=== PATIENT | male | born 1955 | race Caucasian/White ===

== ENCOUNTER 2022-03-02 11:43 | Outpatient (REF) | payer MEDICARE, SELFPAY ==
[2022-03-02 13:18] LABS: ALT 22 U/L (16-63); AST 15 U/L (15-37); Albumin 3.7 g/dL (3.4-5.0); Alkaline Phosphatase 66 U/L (46-116); Anion Gap 8.9 mmol/L (3-11); BUN 15 mg/dL (7-18); Bilirubin, Total 0.5 mg/dL (0.2-1.0); CO2 28.1 mmol/L (21.0-32.0); CREATININE 1.1 mg/dL (0.70-1.30); Calcium 8.7 mg/dL (8.5-10.1); Chloride 105 mmol/L (98-107); Glucose 92 mg/dL (74-106); Potassium 4.1 mmol/L (3.5-5.1); Sodium 142 mmol/L (136-145); Total Protein 7.3 g/dL (6.4-8.2)
== END 2022-03-02 11:44 | disposition home or self-care (01) ==
LOC: LBN 11:43
PROVIDERS: Visit Provider Physician Assistant Medical
DX: U07.1 COVID-19 (principal)
CPT/HCPCS: 80053

== ENCOUNTER 2022-09-28 20:35 | Emergency (ER) | payer MEDICARE, SELFPAY ==
[2022-09-28 20:40] VITALS: BP 158/82; PULSE 83; RESP 20; TEMP 36.2; O2SAT 98
[2022-09-28] MEDS: Ondansetron 4 MG/2 ML VIAL IVP ×2 (21:04→23:27)
[2022-09-28] MEDS: Normal Saline 1,000 ML 1000 ML IV (21:04)
[2022-09-28 21:09] LABS: Abs Immature Grans 0.01 10^3/uL (0.0-0.06); Absolute Basophil Count 0.02 10^3/uL (0.0-0.2); Absolute Eosinophil Count 0.09 10^3/uL (0.0-0.7); Absolute Lymphocyte Count 1.14 10^3/uL (1.2-3.4); Absolute Monocyte Count 0.47 10^3/uL (0.1-0.8); Absolute Neutrophil Count 4.33 10^3/uL (1.2-6.7); Basophils % 0.3; Eosinophils % 1.5; HGB 15.7 g/dL (13.5-17.5); Immature Grans % 0.2; Lymphocytes % 18.8; MCH 31.7 pg (27.0-33.0); MCHC 33.4 % (32.0-36.0); MCV 95 fL (80-95); MPV 10.4 fL (8.0-11.0); Monocytes % 7.8; Neutrophils % 71.4; Platelet Count 247 10^3/uL (130-400); RBC 4.96 10^6/uL (4.36-5.78); RDW 11.9 % (11.8-14.1); WBC 6.06 10^3/uL (4.4-10.8)
[2022-09-28 21:25] LABS: ALT 28 U/L (16-63); AST 21 U/L (15-37); Albumin 4.1 g/dL (3.4-5.0); Alkaline Phosphatase 68 U/L (46-116); Anion Gap 10.3 mmol/L (3-11); BUN 20 mg/dL (7-18); Bilirubin, Total 0.7 mg/dL (0.2-1.0); CO2 27.7 mmol/L (21.0-32.0); Calcium 9.3 mg/dL (8.5-10.1); Chloride 99 mmol/L (98-107); Estimated GFR 83.52 (mL/min/1.73m2); Glucose 117 mg/dL (74-106); Lipase 75 U/L (73-393); Potassium 3.7 mmol/L (3.5-5.1); Sodium 137 mmol/L (136-145); Total Protein 8.5 g/dL (6.4-8.2)
--- NOTE | 2022-09-28 21:30 | DI.CT_ITS ---
Exam(s) CT ABDOMEN PELVIS W EXAM: CT ABDOMEN PELVIS W CLINICAL HISTORY: Abd pain Nausea Vomiting TECHNIQUE: Imaging Protocol: Axial computed tomography images with coronal and sagittal reformatted images were created and reviewed CONTRAST MATERIAL: Intravenous: Omnipaque 350 Contrast volume:100 mL Oral: No COMPARISON: No exams were available for comparison FINDINGS: ABDOMEN: Lung Bases: Normal where visualized. Liver: Normal density. No measurable mass. Portal, Superior Mesenteric, and Splenic Veins: Unremarkable. Gallbladder and Biliary Tract: No radiodense calculus or dilation. Pancreas: Normal density, no abnormal calcifications or inflammatory process. Spleen: Normal. Adrenals: No masses seen. Kidneys: Normal size, contour and axis. No radiodense stones or obstructive uropathy. Tiny simple cys ts are seen in the kidneys. No suspicious solid masses are present. Note is made of a retroaortic l eft renal vein. Abdominal Aorta: Abdominal portion non-dilated. Atherosclerosis is present. Bowel: There are dilated loops of small bowel with air-fluid level seen in the mid and lower abdomen. There do appear to be transition points in the right mid abdomen in the left lower abdomen. Consid er closed loop small bowel obstruction. Appendix is unremarkable. Peritoneal Cavity: There is a trace amount of free fluid in the pelvis. No free air. Lymph Nodes: Within normal limits. Bones: Within normal limits for the patient's age. Soft Tissues: There are bilateral fat containing inguinal hernias. PELVIS: Bladder: Symmetric distention, no gross wall thickening. Reproductive Organs: Unremarkable as visualized. Lymph Nodes: Within normal limits. Bones: Within normal limits for the patient's age. IMPRESSION: 1. Dilated small bowel loops with air-fluid levels as described above. Consider close loop small bow el obstruction. 2. Trace amount of free fluid in the pelvis. No pneumoperitoneum. RADIATION DOSE DELIVERED: 1,148.28mGy.cm Total DLP DATA REPOSITORY: All CT scans at this facility are submitted to the National Radiology Data Registry (NRDR) Dose Index Registry (DIR) with the [employer] ([employer]). RADIATION OPTIMIZATION: All CT scans at this facility use at least one of these dose optimization te chniques: automated exposure control; mA and/or kV adjustment per patient size (includes targeted exa ms where dose is matched to clinical indication); or iterative reconstruction.
--- NOTE | 2022-09-28 21:43 | ED.GENADUL_ITS ---
Discharge Plan Disposition Patient Disposition: Home Condition: Improving Discharge Details Clinical Impression: SBO (small bowel obstruction) Primary Care Provider: None,None ED Provider: Noman Oscar Home Meds and New Rx's Prescriptions: No Action cetirizine [Zyrtec] 10 mg Tablet 10 mg PO DAILY PRN Discharge Instructions Instructions: Bowel Obstruction (ED) Additional Instructions: Please follow-up closely with your primary care physician. Please return to the emergency department for any worsening symptoms. Discharge Data Discharge Date/Time-TO BE ENTERED AT DEPARTURE: 09/29/22 11:04 Medical Decision Making <Yokasta Mccollum NP - Last Filed: 10/02/22 08:13> 56-year-old male presents to the ER with a chief complaint of periumbilical abdominal pain and 2 episodes of emesis which began last night and then again tonight. He reports feeling somewhat sweaty after the emesis. Here he reports a feeling of being bloated. Denies any diarrhea denies any fever chills no chest pain shortness of breath or any other associated symptoms. Does have a history of a umbilical hernia repair with mesh placement. He reports eating some questionable chicken proximately 6 hours prior to symptom onset. No significant past medical history. He is alert and oriented upon arrival and pain has been mostly resolved. CBC shows no leukocytosis, lymphocytes 1.14, sodium potassium within normal limits, BUN 20 creatinine 1.0 glucose 117 lipase within normal limits 75. Urinalysis is pending at this time. Patient received a liter of normal saline and 4 mg of Zofran upon arrival. CT abdomen pelvis ordered to rule out gastroenteritis, obstruction versus diverticu litis versus appendicitis versus cholecystitis. Discussed plan of care with patient who verbalizes understanding. 2302 spoke with ad radiologist regarding CT abdomen and pelvis he is very suspicious for small bowel obstruction with close loop of bowel at 2 ends please see your report below. 2306: Surgery paged. 231: Spoke with Dr. Lainez with General Surgery, discussed patient case in details with her she verbalizes understanding will take a look at his CT and call back. Patient last ate some tea and toast at around noon today. Reports his last bowel movement was approximately 5 hours prior to arrival. On reevaluation he is complaining of some lower abdominal pain and feeling kind of cruddy. I did discuss that the CT results with patient he verbalizes understanding I did recommend to him admission and surgical consult. 2355: Spoke with Dr. Lainez she recommends adding on a lactate, UA, which is pending, and fluids. NS @ 250/hr ordered, she agrees to come in and evaluate the patient. 09/29 10: 50 patient resting comfortably no acute distress nausea and vomiting have resolved, patient tolerated p.o. oral contrast, CT abdomen and pelvis showing likely resolved bowel obstruction. General surgery counseled patient at bedside. I have discussed findings with patient and he feels comfortable going home transitioning slowly back to a normal diet. Given home care instructions and return precautions. Imaging Data Radiologic Study: Imaging: CT Scan Radiologist's impression: COMPARISON: No relevant prior studies available. FINDINGS: Lungs: The lungs are normal. Pleural spaces: There is no evidence of pneumothorax. There are no pleural effusions present. Heart: The cardiac structures are normal. Coronary arteries: There is mild atherosclerotic calcification of the coronary arteries. Liver: There are no focal liver lesions present. There is no evidence of intrahepatic or extrahepatic biliary ductal dilation. Gallbladder and bile ducts: The gallbladder is normal. There is no cholelitiasis, wall thickening or pericholecystic fluid to suggest cholecystitis. Pancreas: The pancreas is normal. Spleen: The spleen is normal. Adrenal glands: The adrenal glands are normal without evidence of mass or enlargement. Kidneys and ureters: Simple appearing 6 mm cyst seen within the lower pole of the left kidney. Simple appearing 10 mm cysts seen within the midpole and upper pole of the right kidney.The kidneys are otherwise normal no evidence of nephrolithiasis or hydronephrosis. The ureters are normal caliber and follow a normal caliber and course. Stomach and bowel: Dilated loops of small bowel with air-fluid levels present within the mid and lower abdomen transition point present within the right mid abdomen and within left lower anterior quadrant of the abdomen. Consider closed loop small bowel obstruction. The stomach is decompressed consistent with patient's history of emesis. Mild diverticulosis is present in the sigmoid and descending colon. There is no evidence of diverticulitis. Appendix: A normal appendix is identified. There is no evidence of distention or periappendiceal inflammation to suggest appendicitis. Intraperitoneal space: There is no free intraperitoneal air. Vasculature: No abdominal aortic aneurysm. Minimal atherosclerosis. The inferior vena cava and portal venous systems are normal. Lymph nodes: There is no evidence of lymphadenopathy. Urinary bladder: The bladder is normal. Reproductive: The prostate gland and seminal vesicles are normal. Bones/joints: Small amount of free fluid seen within the right lower and mid pelvis. Moderate to severe degenerative changes lumbosacral spine and thoracolumbar spine. Soft tissues: There are nonobstructing bilateral inguinal hernias containing fat and possibly a small amount of mesentery. The extra- abdominal soft tissues are normal. IMPRESSION: 1. Dilated loops of small bowel with air-fluid levels present within the mid and lower abdomen transition point present within the right mid abdomen and within left lower anterior quadrant of the abdomen. Consider closed loop small bowel obstruction. 2. The stomach is decompressed consistent with patient's history of emesis. 3. Small amount of free fluid seen within the right lower and mid pelvis. 4. Moderate to severe degenerative changes lumbosacral spine and thoracolumbar spine. Thank you for allowing us to participate in the care of your patient. Dictated and Authenticated by: Chucho Barron MD Lab Data Lab results reviewed: Yes I reviewed the patient's lab results. Lab results narrative: Laboratory Tests Range/Units 09/28/22 09/28/22 09/28/22 20:45 20:45 23:16 WBC (4.4-10.8) 10^3/uL 6.06 RBC (4.36-5.78) 10^6/uL 4.96 Hgb (13.5-17.5) g/dL 15.7 Hct (40.0-50.0) % 47.0 MCV (80-95) fL 95 MCH (27.0-33.0) pg 31.7 MCHC (32.0-36.0) % 33.4 RDW (11.8-14.1) % 11.9 Plt Count (130-400) 10^3/uL 247 MPV (8.0-11.0) fL 10.4 Immature Gran % 0.2 Neutrophils % 71.4 Lymphocytes % 18.8 Monocytes % 7.8 Eosinophils % 1.5 Basophils % 0.3 Nucleated RBC % (0.0-0.3) % 0.0 Absolute Neutrophils (1.2-6.7) 10^3/uL 4.33 Absolute Lymphocytes (1.2-3.4) 10^3/uL 1.14 L Absolute Monocytes (0.1-0.8) 10^3/uL 0.47 Absolute Eosinophils (0.0-0.7) 10^3/uL 0.09 Absolute Basophils (0.0-0.2) 10^3/uL 0.02 Sodium (136-145) mmol/L 137 Potassium (3.5-5.1) mmol/L 3.7 Chloride (98-107) mmol/L 99 Carbon Dioxide (21.0-32.0) mmol/L 27.7 Anion Gap (3-11) mmol/L 10.3 BUN (7-18) mg/dL 20 H Creatinine (0.70-1.30) mg/dL 1.0 Est GFR (CKD-EPI 2020) (mL/min/1.73m2) 83.52 Glucose (74-106) mg/dL 117 H Calcium (8.5-10.1) mg/dL 9.3 Magnesium (1.8-2.4) mg/dL 2.0 Total Bilirubin (0.2-1.0) mg/dL 0.7 AST (15-37) U/L 21 ALT (16-63) U/L 28 Alkaline Phosphatase (46-116) U/L 68 Total Protein (6.4-8.2) g/dL 8.5 H Albumin (3.4-5.0) g/dL 4.1 Lipase (73-393) U/L 75 COVID-19 Source Nasal/Nares <Noman Oscar MD - Last Filed: 09/29/22 10:51> 56-year-old male presents to the ER with a chief complaint of periumbilical abdominal pain and 2 episodes of emesis which began last night and then again tonight. He reports feeling somewhat sweaty after the emesis. Here he reports a feeling of being bloated. Denies any diarrhea denies any fever chills no chest pain shortness of breath or any other associated symptoms. Does have a history of a umbilical hernia repair with mesh placement. He reports eating some questionable chicken proximately 6 hours prior to symptom onset. No significant past medical history. He is alert and oriented upon arrival and pain has been mostly resolved. CBC shows no leukocytosis, lymphocytes 1.14, sodium potassium within normal limits, BUN 20 creatinine 1.0 glucose 117 lipase within normal limits 75. Urinalysis is pending at this time. Patient received a liter of normal saline and 4 mg of Zofran upon arrival. CT abdomen pelvis ordered to rule out gastroenteritis, obstruction versus diverticulitis versus appendicitis versus cholecystitis. Discussed plan of care with patient who verbalizes understanding. 230 spoke with [facility] radiologist regarding CT abdomen and pelvis he is very suspicious for small bowel obstruction with close loop of bowel at 2 ends please see your report below. 2306: Surgery paged. 2315: Spoke with Dr. Lainez with General Surgery, discussed patient case in details with her she verbalizes understanding will take a look at his CT and call back. Patient last ate some tea and toast at around noon today. Reports his last bowel movement was approximately 5 hours prior to arrival. On reevaluation he is complaining of some lower abdominal pain and feeling kind of cruddy. I did discuss that the CT results with patient he verbalizes understanding I did recommend meant to him admission and surgical consult. 2355: Spoke with Dr. Lainez she recommends adding on a lactate, UA, which is pending, and fluids. NS @ 250/hr ordered 09/29 10: 50 patient resting comfortably no acute distress nausea and vomiting have resolved, patient tolerated p.o. oral contrast, CT abdomen and pelvis john wing likely resolved bowel obstruction. General surgery counseled patient at bedside. I have discussed findings with patient and he feels comfortable going home transitioning slowly back to a normal diet. Given home care instructions and return precautions. HPI <Yokasta Mccollum NP - Last Filed: 10/02/22 08:13> General Mode of arrival: ambulatory . Date/Time Provider Initiated Documentation: 09/28/22 20:52 . Limitations to Documentation: no limitations . Information obtained by: patient, RN notes reviewed and old records reviewed . HPI Narrative: 56-year-old male presents to the ER with a chief complaint of periumbilical abdominal pain and 2 episodes of emesis which began last night and then again tonight. He reports feeling somewhat sweaty after the emesis. Here he reports a feeling of being bloated. Denies any diarrhea denies any fever chills no chest pain shortness of breath or any other associated symptoms. Does have a history of a umbilical hernia repair with mesh placement. He reports eating some questionable chicken proximately 6 hours prior to symptom onset. No significant past medical history. He is alert and oriented upon arrival and pain has been mostly resolved. Related Data Home Medications Medication Instructions Recorded Confirmed cetirizine 10 mg tablet (Zyrtec) 10 mg PO DAILY PRN 09/28/22 09/28/22 Allergies Allergy/AdvReac Type Severity Reaction Status Date / Time No Known Allergies Allergy Unverified 09/28/22 20:45 General Stated Complaint: Nausea/Vomit/Diar SERINA: 3 Review of Systems <Yokasta Mccollum NP - Last Filed: 10/02/22 08:13> All systems reviewed & are unremarkable except as noted in HPI and below Constitutional Constitutional: Reports chills, Denies fever(s), Denies headache(s) and Denies weakness ENT Ears, Nose, Mouth, and Throat: Denies headache(s) Cardiovascular Cardiovascular: Denies chest pain, Denies chest pain at rest, Denies leg edema and Denies dyspnea Respiratory Respiratory: Denies dyspnea Gastrointestinal Gastrointestinal: Reports as per HPI, Reports abdominal pain (intermittent), Reports bloating, Reports cramping, Reports early satiety, Denies diarrhea, Reports nausea and Reports vomiting Genitourinary Genitourinary: Denies dysuria Neurologic Neurologic: Denies headache(s) and Denies weakness PFSH <Yokasta Mccollum NP - Last Filed: 10/02/22 08:13> All Active Problems (Updated 09/28/22 @ 23:57 by Yokasta Mccollum NP) SBO (small bowel obstruction) (Acute) Surgical History History of hernia repair Social History Smoking/Tobacco Use Status: Never Smoking risk assessment performed?: Yes Alcohol Intake: current Alcohol Intake frequency: holidays/special occasions only Drug use: Never Substance use type: does not use Do you feel safe at home: Yes Do you feel safe in your relationship?: Yes Exam <Yokasta Mccollum NP - Last Filed: 10/02/22 08:13> Narrative Exam Narrative: Constitutional: Alert and oriented x3. Appears stated age. Normal body habitus. Head: Normocephalic, no trauma. Eyes: Pupils PERRL, Red reflex noted, EOM's intact. Eyelids symmetrical without lesions, discharge, or swelling. ENT: Bilateral TM's WNL, External ear normal to inspection, no mastoid TTP, swelling, or erythema, Nasal turbinates WNL, no nasal discharge. Normal dentition, Posterior pharynx WNL, no exudate. Chest: RRR, Normal S1, S2, distal pulses intact. Resp: Lungs clear to auscultation bilaterally, no wheezes, rales, or rhonchi. Abdomen: Soft, non-distended, Normoactive bowel sounds all 4 quads. No palpable mass noted, Musculoskeletal: Normal gait, 5/5 strength to all four extremities. Skin: No suspicious rashes or lesions. Capillary refill less than 2 sec. Neurologic: Cranial nerves II-XII intact. Alert and oriented x 3. Motor: No deficits noted. Sensory: Intact bilaterally all 4 extremities. Hematologic/Lymphatic: No ecchymosis, no lymphadenopathy. Course <Yokasta Mccollum NP - Last Filed: 10/02/22 08:13> Vital Signs Vital signs: Vital Signs Temperature 36.2 C L 09/28/22 20:40 Pulse 83 09/28/22 20:40 Respiratory Rate 20 09/28/22 20:40 Blood Pressure 158/82 H 09/28/22 20:40 Pulse Oximetry 98 09/28/22 20:40 Temperature 36.2 C L 09/28/22 20:40 Temperature Source Temporal Artery Scan 09/28/22 20:40 Pulse 83 09/28/22 20:40 Respiratory Rate 20 09/28/22 20:40 Respiratory Effort Non-Labored 09/28/22 20:48 Blood Pressure 158/82 H 09/28/22 20:40 Blood Pressure Position Sitting 09/28/22 20:40 Pulse Oximetry 98 09/28/22 20:40 Oxygen Delivery Method Room Air 09/28/22 20:40 Oxygen Flow Rate 0 09/28/22 20:40 Lab/Test Results Lab/Test Results: Laboratory Tests Range/Units 09/28/22 09/28/22 20:45 20:45 WBC (4.4-10.8) 10^3/uL 6.06 RBC (4.36-5.78) 10^6/uL 4.96 Hgb (13.5-17.5) g/dL 15.7 Hct (40.0-50.0) % 47.0 MCV (80-95) fL 95 MCH (27.0-33.0) pg 31.7 MCHC (32.0-36.0) % 33.4 RDW (11.8-14.1) % 11.9 Plt Count (130-400) 10^3/uL 247 MPV (8.0-11.0) fL 10.4 Immature Gran % 0.2 Neutrophils % 71.4 Lymphocytes % 18.8 Monocytes % 7.8 Eosinophils % 1.5 Basophils % 0.3 Nucleated RBC % (0.0-0.3) % 0.0 Absolute Neutrophils (1.2-6.7) 10^3/uL 4.33 Absolute Lymphocytes (1.2-3.4) 10^3/uL 1.14 L Absolute Monocytes (0.1-0.8) 10^3/uL 0.47 Absolute Eosinophils (0.0-0.7) 10^3/uL 0.09 Absolute Basophils (0.0-0.2) 10^3/uL 0.02 Sodium (136-145) mmol/L 137 Potassium (3.5-5.1) mmol/L 3.7 Chloride (98-107) mmol/L 99 Carbon Dioxide (21.0-32.0) mmol/L 27.7 Anion Gap (3-11) mmol/L 10.3 BUN (7-18) mg/dL 20 H Creatinine (0.70-1.30) mg/dL 1.0 Est GFR (CKD-EPI 2020) (mL/min/1.73m2) 83.52 Glucose (74-106) mg/dL 117 H Calcium (8.5-10.1) mg/dL 9.3 Magnesium (1.8-2.4) mg/dL 2.0 Total Bilirubin (0.2-1.0) mg/dL 0.7 AST (15-37) U/L 21 ALT (16-63) U/L 28 Alkaline Phosphatase (46-116) U/L 68 Total Protein (6.4-8.2) g/dL 8.5 H Albumin (3.4-5.0) g/dL 4.1 Lipase (73-393) U/L 75
[2022-09-28] MEDS: Omnipaque 350 MG/ML 100 ML BTL IJ (22:15)
[2022-09-28] MEDS: Normal Saline - Diluent 50 ML VIAL IJ (22:15)
[2022-09-28] MEDS: Normal Saline Flush 10 ML SYR IVP (22:16)
--- NOTE | 2022-09-28 23:02 | DI.VRAD_ITS ---
Addendum created by Chucho Barron MD on 09/28/2022 11:02:58 PM EST: THIS REPORT CONTAINS FINDINGS THAT MAY BE CRITICAL TO PATIENT CARE. The findings were verbally communicated via telephone conference with ARY LEVINE at 11:02 PM EST on 09/28/2022. The findings were acknowledged and understood. Initial report created on 09/28/2022 11:01:42 PM EST: PROCEDURE INFORMATION: Exam: CT Abdomen And Pelvis With Contrast Exam date and time: 09/28/2022 10:17 PM Age: 66 years old Clinical indication: Nausea and vomiting; Abdominal pain; Localized; Other: Middle abdomen; Patient HX: Abd pain, nausea, vomiting TECHNIQUE: Imaging protocol: Computed tomography of the abdomen and pelvis with contrast. COMPARISON: No relevant prior studies available. FINDINGS: Lungs: The lungs are normal. Pleural spaces: There is no evidence of pneumothorax. There are no pleural effusions present. Heart: The cardiac structures are normal. Coronary arteries: There is mild atherosclerotic calcification of the coronary arteries. Liver: There are no focal liver lesions present. There is no evidence of intrahepatic or extrahepatic biliary ductal dilation. Gallbladder and bile ducts: The gallbladder is normal. There is no cholelitiasis, wall thickening or pericholecystic fluid to suggest cholecystitis. Pancreas: The pancreas is normal. Spleen: The spleen is normal. Adrenal glands: The adrenal glands are normal without evidence of mass or enlargement. Kidneys and ureters: Simple appearing 6 mm cyst seen within the lower pole of the left kidney. Simple appearing 10 mm cysts seen within the midpole and upper pole of the right kidney.The kidneys are otherwise normal no evidence of nephrolithiasis or hydronephrosis. The ureters are normal caliber and follow a normal caliber and course. Stomach and bowel: Dilated loops of small bowel with air-fluid levels present within the mid and lower abdomen transition point present within the right mid abdomen and within left lower anterior quadrant of the abdomen. Consider closed loop small bowel obstruction. The stomach is decompressed consistent with patient's history of emesis. Mild diverticulosis is present in the sigmoid and descending colon. There is no evidence of diverticulitis. Appendix: A normal appendix is identified. There is no evidence of distention or periappendiceal inflammation to suggest appendicitis. Intraperitoneal space: There is no free intraperitoneal air. Vasculature: No abdominal aortic aneurysm. Minimal atherosclerosis. The inferior vena cava and portal venous systems are normal. Lymph nodes: There is no evidence of lymphadenopathy. Urinary bladder: The bladder is normal. Reproductive: The prostate gland and seminal vesicles are normal. Bones/joints: Small amount of free fluid seen within the right lower and mid pelvis. Moderate to severe degenerative changes lumbosacral spine and thoracolumbar spine. Soft tissues: There are nonobstructing bilateral inguinal hernias containing fat and possibly a small amount of mesentery. The extra-abdominal soft tissues are normal. IMPRESSION: 1. Dilated loops of small bowel with air-fluid levels present within the mid and lower abdomen transition point present within the right mid abdomen and within left lower anterior quadrant of the abdomen. Consider closed loop small bowel obstruction. 2. The stomach is decompressed consistent with patient's history of emesis. 3. Small amount of free fluid seen within the right lower and mid pelvis. 4. Moderate to severe degenerative changes lumbosacral spine and thoracolumbar spine. Dictated and Authenticated by: Chucho Barron MD. Ordering:DIAMANTE Templeton MD
[2022-09-28 23:19] LABS: Source Nasal/Nares
[2022-09-28] MEDS: Normal Saline 1,000 ML 250 ML IV (23:27)
[2022-09-28 23:49] LABS: COVID-19 PCR Negative (Negative)
[2022-09-29 00:04] LABS: Lactate 0.9 mmol/L (0.6-1.4)
[2022-09-29 00:14] LABS: Bilirubin Negative (Negative); Blood Negative (Negative); Clarity Clear (Clear); Glucose Negative (Negative); Ketones 15 mg/dL (Negative); Leukocyte Esterase Negative (Negative); Nitrite Negative (Negative); Urobilinogen 0.2 EU/dL (Up TO 0.2); pH 5.5 (5-8)
[2022-09-29 00:38] LABS: *AMPHETAMINES SCREEN URINE Negative (Negative); *BARBITURATES SCREEN URINE Negative (Negative); *BENZODIAZEPINES SCREEN URINE Negative (Negative); Cannabinoids THC Negative (Negative); Cocaine Screen,Urine Negative (Negative); METHADONE URINE SCREEN Negative (Negative); OPIATES URINE SCREEN Negative (Negative)
[2022-09-29 00:42] LABS: Tricyclic Antidepressants Negative (Negative)
[2022-09-29 06:27] VITALS: BP 152/76; PULSE 63; RESP 16; O2SAT 97
--- NOTE | 2022-09-29 07:30 | DI.CT_ITS ---
Exam(s) CT ABDOMEN PELVIS W EXAM: CT ABDOMEN PELVIS W CLINICAL HISTORY: r/o obstruction. Dr Lainez requested NEW CT TECHNIQUE: Imaging Protocol: Axial computed tomography images with coronal and sagittal reformatted images were created and reviewed CONTRAST MATERIAL: Intravenous: Omnipaque 350 Contrast volume:100 mL Oral: Yes COMPARISON: CT CT ABDOMEN PELVIS W from 09/28/2022 FINDINGS: ABDOMEN: Lung Bases: Normal where visualized. Liver: Normal density. No measurable mass. Portal, Superior Mesenteric, and Splenic Veins: Unremarkable. Gallbladder and Biliary Tract: No radiodense calculus or dilation. Layering mild hyperdense material is seen in the gallbladder consistent with excreted contrast from the prior CT. Pancreas: Normal density, no abnormal calcifications or inflammatory process. Spleen: Normal. Adrenals: No masses seen. Kidneys: Normal size, contour and axis. No radiodense stones or obstructive uropathy. Stable small bi lateral renal cysts. There is a retroaortic left renal vein. Abdominal Aorta: Abdominal portion non-dilated. Atherosclerosis is present. Bowel: There is no evidence of bowel obstruction. The oral contrast administered passes into the col on. The leading edge of contrast is seen in the sigmoid colon. Appendix is unremarkable. Peritoneal Cavity: There is a trace amount of free fluid in the pelvis. No free air. Lymph Nodes: Within normal limits. Bones: Within normal limits for the patient's age. Soft Tissues: There are fat containing bilateral inguinal hernias. PELVIS: Bladder: Symmetric distention, no gross wall thickening. Reproductive Organs: Unremarkable as visualized. Lymph Nodes: Within normal limits. Bones: Within normal limits for the patient's age. IMPRESSION: 1. Interval improvement in the appearance of the small bowel loops without evidence of bowel obstruct ion. Oral contrast is administered and advances into the colon. 2. No acute abdominal pelvic process. RADIATION DOSE DELIVERED: 1,385.92mGy.cm Total DLP DATA REPOSITORY: All CT scans at this facility are submitted to the National Radiology Data Registry (NRDR) Dose Index Registry (DIR) with the [employer] (A[employer]). RADIATION OPTIMIZATION: All CT scans at this facility use at least one of these dose optimization te chniques: automated exposure control; mA and/or kV adjustment per patient size (includes targeted exa ms where dose is matched to clinical indication); or iterative reconstruction.
[2022-09-29] MEDS: Normal Saline Flush 10 ML SYR IVP (07:58)
[2022-09-29] MEDS: Ondansetron 4 MG/2 ML VIAL (07:58)
[2022-09-29] MEDS: Omnipaque 350 MG/ML 100 ML BTL IJ (09:48)
[2022-09-29] MEDS: Omnipaque 350 MG/ML 50 ML BTL PO (09:49)
[2022-09-29] MEDS: Breeza Beverage 473 ML BTL PO (09:50)
--- NOTE | 2022-09-29 10:17 | NUR.NOTE ---
Nursing Note: Patient resting on stretcher with eyes closed. Appears comfortable. Visible, even respirations.
--- NOTE | 2022-09-29 10:18 | DI.VRAD_ITS ---
PROCEDURE INFORMATION: Exam: CT Abdomen And Pelvis With Contrast Exam date and time: 09/29/2022 9:46 AM Age: 66 years old Clinical indication: Abdominal pain TECHNIQUE: Imaging protocol: Computed tomography of the abdomen and pelvis with contrast. 1441image(s) are provided. Other technique: Axial images are available with sagittal and coronal reconstruction views. Automated dose exposure control is utilized. The DLP is 1386.0. COMPARISON: CT ABDOMEN PELVIS W 09/28/2022 10:17 PM FINDINGS: Lungs: There is some minimal dependent subsegmental atelectasis with postinflammatory appearing minimal scarring present.No lobar consolidation is appreciated. There are some borderline perihepatic bronchovascular marci averaging appearing changes incompletely included along with some granulomatous calcific appearance of the tracheobronchial margins. Liver: There is some mild hepatic steatosis appearance overall. Gallbladder and bile ducts: There is some trace gallbladder sludge present. Pancreas: Unremarkable. Spleen: Unremarkable. Adrenal glands: Unremarkable. Kidneys and ureters: There are subcentimeter fluid dense renal simple appearing cystic changes present similar. Stomach and bowel: Some aspects of the colon are undistended. This may also be peristaltic related.There is abundant stool present limiting mucosal detail evaluation. There are some borderline small bowel loops of the central left abdomen although decreased in diameter indicative of some interval improvement. In addition there is colonic contrast also present indicating the lack of complete obstruction with patency. There is some distal ileal decompression with smooth transitioning overall. Appendix: No evidence of appendicitis. Intraperitoneal space: There is some subtle mesenteric omental stranding although decreased in the interval. No free air or organized free fluid collections are appreciated. Vasculature: There are phleboliths present. The vascular course is maintained overall with no interval aneurysmal aortic dilatation appreciated. Lymph nodes: No abnormal lymph node enlargement is appreciated. Urinary bladder: The bladder is incompletely fluid filled for evaluation which may exagerate the wall thickness. This can also be seen with post inflammation sequela. Reproductive: Unremarkable as visualized. Bones/joints: Osseous alignment is maintained.No interval displaced fracture or dislocation is appreciated. There is chronic multilevel spurring and disc space narrowing of the lumbar spine contributing to some osseous neural foraminal narrowing. Soft tissues: Unremarkable. Other findings: No other significant interval changes are appreciated. IMPRESSION: 1. There is interval decreased small-bowel dilatation as well as wall thickness and stranding indicative of some interval improvement as compared to the previous study. There is also colonic contrast now present indicating the lack of complete obstruction. This therefore could be seen with some element of ileus or enteritis. 2. There is an unremarkable appearance of the appendix demonstrated. 3. No interval free air or free fluid collections are appreciated. Dictated and Authenticated by: Dipesh Wood MD. Ordering:FAUSTO Sharp MD
--- NOTE | 2022-09-29 10:51 | SCONE_ITS ---
Date of service: 09/29/22 Time of Service: 10:51 Assessment and Plan Assessment and plan (1) SBO (small bowel obstruction): Status: Acute Assessment and plan: This is a 66yo male who presented with nausea/vomiting, and abdominal pain. Initial CT with IV contrast was concerning for possible closed loop obstruction. However on my initial examination his exam was completely benign. Imaging was repeated with oral contrast which demonstrated clear passage of contrast into the colon. The patient is feeling well, and is without nausea, and tolerated PO challenge. He was instructed to keep a soft diet for the next few days, take a stool softener, and drink plenty of non-sugary clear fluids. The patient demonstrated understanding of these instructions, and felt safe and well to go home. History of Present Illness History of Present Illness Chief Complaint: abdominal pain, nausea/vomiting Narrative: This is a healthy 66-year-old male who presented to the ED with abdominal pain, and nausea/vomiting that started the evening of 09/27/22. He describes awaking at midnight and forcefully vomiting for the next several hours. He ate some tea and toast around noon on 09/28, and subsequently vomited again. He was feeling bloated and had herman-umbilcial pain, so he decided to present to the ED. He denies fevers, or chills, but felt diaphoretic while vomiting. His last bowel movement was small on 09/28. Voiding well. He denies any sick contacts, but was concerned he may have had some undercooked chicken earlier on 09/27. His only abdominal surgical history is umbilical hernia with mesh. He has never had a bowel obstruction. Review of Systems Narrative: A 10-point ROS was conducted. Pertinent findings above. PFSH All Active Problems (Updated 09/28/22 @ 23:57 by Yokasta Mccollum NP) SBO (small bowel obstruction) (Acute) Surgical History History of hernia repair Social History Smoking/Tobacco Use Status: Never Smoking risk assessment performed?: Yes Alcohol Intake: current Alcohol Intake frequency: holidays/special occasions only Drug use: Never Substance use type: does not use Do you feel safe at home: Yes Do you feel safe in your relationship?: Yes Exam Const General: cooperative, healthy appearing, comfortable, no acute distress, well developed and well groomed Nutritional Appearance: average body habitus Orientation: alert, awake and oriented x3 [facility] Mouth: moist mucous membranes abnormal (dry) Neck Neck: normal visual inspection, trachea midline and supple Resp Effort & Inspection: normal respiratory effort, able to speak in complete sentences, no grunting and no nasal flaring Auscultation: clear to auscultation bilaterally Cardio Rate: regular rate Rhythm: regular rhythm Heart Sounds: S1 normal GI Inspection: normal to inspection, non-distended and scar (supraumbilical) Palpation: soft, not firm, no guarding, not rigid and nontender Percussion: normal to percussion Auscultation: hypoactive bowel sounds Other: benign exam, nondistended and nontender Neuro General: patient alert, patient awake and patient oriented x3 Cognition: normal cognition Speech: speech normal Psych Appearance: grossly normal Mental Status: mental status grossly normal Mood: congruent mood Attitude: cooperative Thought Process: normal Thought Content: normal Insight: insight good Judgment: judgment good Results Last Vital Signs Temp 97.2 F L 09/28/22 20:40 Pulse 63 09/29/22 06:27 Resp 16 09/29/22 06:27 BP 152/76 H 09/29/22 06:27 Pulse Ox 97 09/29/22 06:27 Labs Result diagrams: 09/28/22 20:45 09/28/22 20:45 Labs: Laboratory Results - last 24 hr 09/28/22 09/28/22 09/28/22 20:45 20:45 23:16 WBC 6.06 RBC 4.96 Hgb 15.7 Hct 47.0 MCV 95 MCH 31.7 MCHC 33.4 RDW 11.9 Plt Count 247 MPV 10.4 Immature Gran % 0.2 Neutrophils % 71.4 Lymphocytes % 18.8 Monocytes % 7.8 Eosinophils % 1.5 Basophils % 0.3 Nucleated RBC % 0.0 Absolute Neutrophils 4.33 Absolute Lymphocytes 1.14 L Absolute Monocytes 0.47 Absolute Eosinophils 0.09 Absolute Basophils 0.02 VBG Lactate Sodium 137 Potassium 3.7 Chloride 99 Carbon Dioxide 27.7 Anion Gap 10.3 BUN 20 H Creatinine 1.0 Est GFR (CKD-EPI 2020) 83.52 Glucose 117 H Calcium 9.3 Magnesium 2.0 Total Bilirubin 0.7 AST 21 ALT 28 Alkaline Phosphatase 68 Total Protein 8.5 H Albumin 4.1 Lipase 75 Urine Color Urine Clarity Urine pH Ur Specific [place] Urine Protein Urine Ketones Urine Blood Urine Nitrite Urine Bilirubin Urine Urobilinogen Ur Leukocyte Esterase Urine Glucose Urine Opiates Screen Urine Methadone Screen Ur Barbiturates Screen Ur Tricyclics Screen Ur Amphetamines Screen U Benzodiazepines Scrn Urine Cocaine Screen Ur THC Screen COVID-19 Source Nasal/Nares SARS-CoV-2 (PCR) Negative 09/29/22 09/29/22 09/29/22 00:00 00:03 00:03 WBC RBC Hgb Hct MCV MCH MCHC RDW Plt Count MPV Immature Gran % Neutrophils % Lymphocytes % Monocytes % Eosinophils % Basophils % Nucleated RBC % Absolute Neutrophils Absolute Lymphocytes Absolute Monocytes Absolute Eosinophils Absolute Basophils VBG Lactate 0.9 Sodium Potassium Chloride Carbon Dioxide Anion Gap BUN Creatinine Est GFR (CKD-EPI 2020) Glucose Calcium Magnesium Total Bilirubin AST ALT Alkaline Phosphatase Total Protein Albumin Lipase Urine Color Yellow Urine Clarity Clear Urine pH 5.5 Ur Specific [place] 1.020 Urine Protein Negative Urine Ketones 15 H Urine Blood Negative Urine Nitrite Negative Urine Bilirubin Negative Urine Urobilinogen 0.2 Ur Leukocyte Esterase Negative Urine Glucose Negative Urine Opiates Screen Negative Urine Methadone Screen Negative Ur Barbiturates Screen Negative Ur Tricyclics Screen Negative Ur Amphetamines Screen Negative U Benzodiazepines Scrn Negative Urine Cocaine Screen Negative Ur THC Screen Negative COVID-19 Source SARS-CoV-2 (PCR) Imaging Additional studies: CT ABD/PEL(09/28/2022): FINDINGS: Lungs: The lungs are normal. Pleural spaces: There is no evidence of pneumothorax. There are no pleural effusions present. Heart: The cardiac structures are normal. Coronary arteries: There is mild atherosclerotic calcification of the coronary arteries. Liver: There are no focal liver lesions present. There is no evidence of intrahepatic or extrahepatic biliary ductal dilation. Gallbladder and bile ducts: The gallbladder is normal. There is no cholelitiasis, wall thickening or pericholecystic fluid to suggest cholecystitis. Pancreas: The pancreas is normal. Spleen: The spleen is normal. Adrenal glands: The adrenal glands are normal without evidence of mass or enlargement. Kidneys and ureters: Simple appearing 6 mm cyst seen within the lower pole of the left kidney. Simple appearing 10 mm cysts seen within the midpole and upper pole of the right kidney.The kidneys are otherwise normal no evidence of nephrolithiasis or hydronephrosis. The ureters are normal caliber and follow a normal caliber and course. Stomach and bowel: Dilated loops of small bowel with air-fluid levels present within the mid and lower abdomen transition point present within the right mid abdomen and within left lower anterior quadrant of the abdomen. Consider closed loop small bowel obstruction. The stomach is decompressed consistent with patient's history of emesis. Mild diverticulosis is present in the sigmoid and descending colon. There is no evidence of diverticulitis. Appendix: A normal appendix is identified. There is no evidence of distention or periappendiceal inflammation to suggest appendicitis. Intraperitoneal space: There is no free intraperitoneal air. Vasculature: No abdominal aortic aneurysm.? Minimal atherosclerosis. The inferior vena cava and portal venous systems are normal. Lymph nodes: There is no evidence of lymphadenopathy. Urinary bladder: The bladder is normal. Reproductive: The prostate gland and seminal vesicles are normal. Bones/joints: Small amount of free fluid seen within the right lower and mid pelvis. Moderate to severe degenerative changes lumbosacral spine and thoracolumbar spine. Soft tissues: There are nonobstructing bilateral inguinal hernias containing fat and possibly a small amount of mesentery. The extra-abdominal soft tissues are normal. IMPRESSION: 1. Dilated loops of small bowel with air-fluid levels present within the mid and lower abdomen transition point present within the right mid abdomen and within left lower anterior quadrant of the abdomen. Consider closed loop small bowel obstruction. 2. The stomach is decompressed consistent with patient's history of emesis. 3. Small amount of free fluid seen within the right lower and mid pelvis. 4. Moderate to severe degenerative changes lumbosacral spine and thoracolumbar spine. Imaging Studies: CT ABD/PEL w/oral contrast(09/29/2022): INDINGS: Lungs: There is some minimal dependent subsegmental atelectasis with postinflammatory appearing minimal scarring present.No lobar consolidation is appreciated. There are some borderline perihepatic bronchovascular marci averaging appearing changes incompletely included along with some granulomatous calcific appearance of the tracheobronchial margins. Liver: There is some mild hepatic steatosis appearance overall. Gallbladder and bile ducts: There is some trace gallbladder sludge present. Pancreas: Unremarkable. Spleen: Unremarkable.? Adrenal glands: Unremarkable. Kidneys and ureters: There are subcentimeter fluid dense renal simple appearing cystic changes present similar. Stomach and bowel: Some aspects of the colon are undistended. This may also be peristaltic related.There is abundant stool present limiting mucosal detail evaluation. There are some borderline small bowel loops of the central left abdomen although decreased in diameter indicative of some interval improvement. In addition there is colonic contrast also present indicating the lack of complete obstruction with patency. There is some distal ileal decompression with smooth transitioning overall. Appendix: No evidence of appendicitis. Intraperitoneal space: There is some subtle mesenteric omental stranding although decreased in the interval. No free air or organized free fluid collections are appreciated. Vasculature: There are phleboliths present. The vascular course is maintained overall with no interval aneurysmal aortic dilatation appreciated. Lymph nodes: No abnormal lymph node enlargement is appreciated. Urinary bladder: The bladder is incompletely fluid filled for evaluation which may exagerate the wall thickness. This can also be seen with post inflammation sequela. Reproductive: Unremarkable as visualized. Bones/joints: Osseous alignment is maintained.No interval displaced fracture or dislocation is appreciated. There is chronic multilevel spurring and disc space narrowing of the lumbar spine contributing to some osseous neural foraminal narrowing. Soft tissues: Unremarkable. Other findings: No other significant interval changes are appreciated. IMPRESSION: 1. There is interval decreased small-bowel dilatation as well as wall thickness and stranding indicative of some interval improvement as compared to the previous study. There is also colonic contrast now present indicating the lack of complete obstruction. This therefore could be seen with some element of ileus or enteritis. 2. There is an unremarkable appearance of the appendix demonstrated. 3. No interval free air or free fluid collections are appreciated.
[2022-09-29 10:52] VITALS: BP 149/88; PULSE 61; RESP 16; O2SAT 96
== END 2022-09-29 11:04 | disposition home or self-care (01) ==
PROVIDERS: Registered Nurse Emergency; Emergency Provider Emergency Medicine
DX: K56.609 Unspecified intestinal obstruction, unspecified as to partial versus complete obstruction (principal); Z79.899 Other long term (current) drug therapy
CPT/HCPCS: 80053; 80307; 83690; 87635; 96361; 96374; 96376; 99283; 99285; 74177; 81003; 83605; 83735; 85025; 99284; J2405; J3490; Q9967